=== PATIENT | male | born 1955 | race Caucasian/White ===

== ENCOUNTER 2018-03-03 21:54 | Emergency (ER) | payer SELFPAY ==
[~2018-03-03] VITALS: Ht 175.3 cm; Wt 81.6 kg
[2018-03-03 22:07] VITALS: BP 104/53
[2018-03-03] MEDS ORDERED: GABA300C PO (22:09)
[2018-03-03] MEDS ORDERED: LOVA20TA8 PO (22:09)
[2018-03-03] MEDS ORDERED: CITA20TA15 PO (22:09)
[2018-03-03] MEDS ORDERED: OMEP20TC12 PO (22:09)
[2018-03-03] MEDS ORDERED: BUPR1TAB58 SL (22:09)
[2018-03-03] MEDS ORDERED: HYDR-9 PO (22:09)
[2018-03-03] MEDS ORDERED: ZOLP10TA1 PO (22:09)
[2018-03-03] MEDS ORDERED: METH500T14 PO (22:09)
[2018-03-03] MEDS ORDERED: TIZA4CAP PO (22:09)
[2018-03-04] MEDS ORDERED: NACL 0.9% 1,000 ML IV ONE (00:45)
[2018-03-04 03:54] VITALS: BP 119/64
== END 2018-03-04 03:08 | disposition home or self-care (01) ==
LOC: MED 21:54
DX: F10.129 Alcohol abuse with intoxication, unspecified (principal); I10 Essential (primary) hypertension; Z79.899 Other long term (current) drug therapy
CPT/HCPCS: 99283